=== PATIENT | female | born 1960 | race Hispanic/Latino ===

== ENCOUNTER 2017-01-19 13:45 | Emergency (ER) | payer OTHER ==
[2017-01-19] MEDS ORDERED: Ketorolac Tromethamine 60 MG/2 ML VIAL ONE (14:31)
--- NOTE | 2017-01-19 16:01 | RAD ---
RIGHT FOOT THREE VIEWS 01/19/17 HISTORY: Right foot injury. FINDINGS: Comminuted fracture involving the head of the proximal phalanx of the third toe includes sagittally o riented extension to the articular surface. There is 0.1 cm intra-articular gap. Heterotopic ossification lies plantar to the third metatarsophalangeal joint. Degenerative changes of the first metatarsophalangeal joint includes osteophytosis and subchondral sc lerosis. Mild bunion deformity is present with minimal hallux valgus. There are degenerative changes throughout the foot. IMPRESSION: 1. Right third toe fracture including intra-articular extension. 2. Osteoarthritis right foot. POS: [facility]
== END 2017-01-19 15:43 | disposition home or self-care (01) ==
LOC: ERS 13:45
DX: S92.534A Nondisplaced fracture of distal phalanx of right lesser toe(s), initial encounter for closed fracture (principal); E10.9 Type 1 diabetes mellitus without complications; W22.03XA Walked into furniture, initial encounter
CPT/HCPCS: 96372; J1885

== ENCOUNTER 2020-03-09 15:41 | Outpatient (CLI) | payer OTHER ==
--- NOTE | 2020-03-09 16:06 | RAD ---
XR Cerv Sp Ap Lat STANDARD History: Disability exam. Neck pain Comparison: None. Findings: No acute cervical spine fracture. Moderate degenerative disc space disease at C5/C6 with di sc space height loss and disc osteophyte complex. Mild facet joint narrowing C3-C7. Degenerative 1 to 2 mm C4/C5 anterolisthesis. 1 to 2 mm C5/C6 retrolisthesis. Impression: Moderate degenerative change centered at C5/C6. No acute osseous abnormality.
--- NOTE | 2020-03-09 16:07 | RAD ---
XR Knee Rt 2 View History: Pain Comparison: None. Findings: No acute fracture or malalignment. Mild enthesopathic change quadriceps tendon upon the pat alyx. No significant osteophyte formation. Lateral proximal fibular metadiaphyseal periosteal new bone form ation could be sequelae of an old injury. Impression: No acute osseous abnormality.
--- NOTE | 2020-03-09 16:08 | RAD ---
Exam: XR Hand Rt 2 View HISTORY: Disability exam. COMPARISON: None FINDINGS: Minimal scattered osteoarthritis is seen involving the interphalangeal joints and involving the metac arpal phalangeal joint of the thumb. No fracture, dislocation, or other osseous abnormality is seen involving the right hand. IMPRESSION: 1. Minimal osteoarthritis without evidence of an acute osseous abnormality.
== END 2020-03-09 15:42 | disposition home or self-care (01) ==
LOC: BICRAD 15:41
PROVIDERS: ATTEND Internal Medicine
DX: Z02.71 Encounter for disability determination (principal); M19.041 Primary osteoarthritis, right hand; M47.812 Spondylosis without myelopathy or radiculopathy, cervical region
CPT/HCPCS: 72040